=== PATIENT | female | born 1965 | race Asian ===

== ENCOUNTER 2016-12-27 05:28 | Day surgery (SDC) | payer OTHER ==
[2016-12-22 13:20] VITALS: BMI 24.3
[2016-12-27] MEDS ORDERED: MIDAZOLAM HCL 2 MG/2 ML SINGLE DOSE VIAL ONE (12:19)
[2016-12-27] MEDS ORDERED: PROPOFOL 20 ML ONE (12:19)
[2016-12-27] MEDS ORDERED: oxyCODONE HCL 5 MG TABLET PO PRN (13:55)
[2016-12-27] MEDS ORDERED: ONDANSETRON 4 MG/2 ML VIAL IVPUSH PRN (13:55)
[2016-12-27] MEDS ORDERED: ACETAMINOPHEN 1000 MG/100 ML VIAL (NON FORMULARY) IVPB PRN (13:56)
[2016-12-27] MEDS ORDERED: LACTATED RINGERS SOLUTION 1,000 ML IV SCH (14:00)
[2016-12-27] MEDS ORDERED: ACETAMINOPHEN 325 MG TABLET (FP) PO PRN (14:16)
[2016-12-27] MEDS ORDERED: IBUPROFEN 400 MG TABLET (FP) PO PRN (14:16)
--- NOTE | 2016-12-27 14:16 | HP ---
Admitting History and Physical - Admission History of Present Illness: 51 yo postmenopausal woman with postmenopausal bleeding and thickened endometrium Last menses 11/2015. Reports hx/o fibroid uterus, s/p ultrasound that showed thickened endometrium ( 11mm). Patient subsequently had episode of bleeding and desired surgical intervention. History Source: Patient Limitations to Obtaining History: No Limitations - Past Medical History Cardiovascular: No: HTN Pulmonary: Yes: Asthma Gastrointestinal: No: GERD ...LMP Comment: 11/2015 ...: No ...: 3 ...Para: 2 Heme/Onc: No: Anemia - Past Surgical History Past Surgical History: Yes: None - Smoking History Smoking history: Never smoked Aproximately how many cigarettes per day: 0 - Alcohol/Substance Use Hx Alcohol Use: No Home Medications - Allergies Allergies/Adverse Reactions: Allergies Allergy/AdvReac Type Severity Reaction Status Date / Time No Known Drug Allergies Allergy Verified 12/27/16 12:03 meloxicam AdvReac Verified 12/27/16 12:03 - Home Medications Home Medications: Ambulatory Orders Olmesartan Medoxomil [Benicar -] 20 mg PO DAILY 11/22/13 Albuterol Sulfate [Proventil HFA Inhaler -] 1 - 2 inh PO PRN PRN 05/18/16 Cholecalciferol (Vitamin D3) [Vitamin D -] 400 unit PO DAILY 05/18/16 Cyanocobalamin (Vitamin B-12) [Vitamin B12] 2,500 mcg PO DAILY 05/18/16 Family Disease History - Family Disease History Family History: Denies Review of Systems - Review of Systems Constitutional: reports: No Symptoms Cardiovascular: reports: No Symptoms Respiratory: reports: No Symptoms Gastrointestinal: reports: No Symptoms Genitourinary: reports: No Symptoms Musculoskeletal: reports: No Symptoms Integumentary: reports: No Symptoms Neurological: reports: No Symptoms Psychiatric: reports: No Symptoms Physical Examination Vital Signs: Vital Signs Temperature 98.4 F 12/27/16 12:00 Pulse Rate 89 12/27/16 12:00 Respiratory Rate 20 12/27/16 12:00 Blood Pressure 139/96 12/27/16 12:00 O2 Sat by Pulse Oximetry (%) 100 12/27/16 11:59 Constitutional: Yes: Well Nourished, No Distress, Calm Neck: Yes: Supple Cardiovascular: Yes: Regular Rate and Rhythm Respiratory: Yes: Regular, CTA Bilaterally Gastrointestinal: Yes: Normal Bowel Sounds, Soft Edema: No Psychiatric: Yes: Alert, Oriented Assessment/Plan 51 yo with thickened endometrium, postmenopausal bleeding. 1. Consents reviewed and signed. Reviewed risk including uterine perforation, bleeding, infection, damage to surrounding organs. She expressed understanding and written consent obtained 2. No preop antibiotics indicated 3. SCDs for DVT PPx 4. Will proceed ot OR
[2016-12-27 14:18] VITALS: TEMP 97.6
--- NOTE | 2016-12-27 14:19 | OP ---
Operative Note - Note: Operative Date: 12/27/16 Pre-Operative Diagnosis: postmenopausal bleeding, thickened endometrium Operation: hysterscopy, dilation and curettage Findings: normal appearing endometrium, uterus sounded to 8cm Surgeon: Julisa Sanchez Anesthesiologist/WATER QUALITY TECHNICIAN: Cyrus Malone Anesthesia: MAC Estimated Blood Loss (mls): 5 Fluid Volume Replaced (mls): 600 Operative Report Dictated: Yes
[2016-12-27 17:30] VITALS: BP 131/84; PULSE 69
--- NOTE | 2016-12-28 00:41 | OP ---
DATE OF OPERATION: 12/27/2016 ATTENDING PHYSICIAN: Julisa Sanchez MD PREOPERATIVE DIAGNOSIS: Postmenopausal bleeding, thickened endometrium. POSTOPERATIVE DIAGNOSIS: Postmenopausal bleeding, thickened endometrium. SURGERY: Hysteroscopy, dilation and curettage. FLUIDS GIVEN: 600 ml ESTIMATED BLOOD LOSS: 5 ml INDICATION: The patient is a 51-year-old 3, para 2, postmenopausal woman who had initially underwent ultrasound, which showed a thickened endometrium. She subsequently had an episode of bleeding. She was counseled regarding medical and surgical management and observation. She opted for surgical management. Risks, benefits, alternatives, and complications to the procedure were discussed including infection, bleeding, damage to surrounding organs such as bowel, bladder, ureters, she expressed understanding. DESCRIPTION OF PROCEDURE: She was brought to the operating room. She underwent anesthesia and when anesthesia was found to be adequate, the patient was prepped and draped in the normal sterile fashion and placed in the dorsal lithotomy position using Seamus stirrups. A weighted speculum was placed in the posterior portion of the patient's vagina. The anterior lip of the cervix was grasped using an Allis clamp. The cervix was gently dilated to accommodate a size 3-mm hysteroscope. The uterus was sounded to be approximately 8 mm. Hysteroscopy was performed. Bilateral ostia were visualized. No abnormal endometrium was noted. Gentle sharp curettings were performed. All instruments were removed from the patient's vagina. Patient tolerated the procedure well. Patient was awakened from anesthesia and brought to the recovery room in stable condition. Jesus [id number] MTDD
--- NOTE | 2016-12-29 10:27 | PATH ---
Surgical Pathology Report Patient Name: CHANTELL COULTER [facility]. Rec. #: [id number] /Age/Gender: 1965 (Age: 51) / F Account: [id number] Location: [facility] Taken: 12/27/2016 Received: 12/28/2016 Reported: 12/29/2016 Physicians: Julisa Sanchez Specimen(s) Received ENDOMETRIAL CURETTINGS Clinical History Postmenopausal bleeding Final Diagnosis ENDOMETRIUM, CURETTING: PROLIFERATIVE ENDOMETRIUM WITH AREAS OF STROMAL AND GLANDULAR BREAKDOWN. Comment: Recommend correlation with clinical findings and follow up as clinically indicated. Electronically Signed Juan Corrigan M.D. Gross Description Received in formalin labeled "endometrial curetting," is a 1.8 x 1.4 x 0.3 cm aggregate of stovall soft tissue fragments admixed with mucus. The formalin is filtered and the specimen is entirely submitted in one cassette. /12/28/2016 saudi12/28/2016
== END 2016-12-27 15:20 | disposition home or self-care (01) ==
LOC: JASU-SURG 05:28
PROVIDERS: ATTEND Obstetrics & Gynecology
PROC: 0UDB8ZX Extraction of Endometrium, Via Natural or Artificial Opening Endoscopic, Diagnostic (ICD-10-PCS; principal; 2016-12-27 13:00)
DX: N95.0 Postmenopausal bleeding (principal); R93.8 Abnormal findings on diagnostic imaging of other specified body structures
CPT/HCPCS: 88305-TC; 94760

== ENCOUNTER 2021-01-21 05:13 | Day surgery (SDC) | payer OTHER ==
[2021-01-19 16:53] VITALS: BMI 24.7
[2021-01-21 10:49] VITALS: BP 137/78; PULSE 64; TEMP 97
== END 2021-01-21 12:29 | disposition home or self-care (01) ==
LOC: JASU-ENDO 05:13
PROVIDERS: ATTEND Internal Medicine Gastroenterology
PROC: 0DB78ZX Excision of Stomach, Pylorus, Via Natural or Artificial Opening Endoscopic, Diagnostic (ICD-10-PCS; 2021-01-21)
PROC: 0DBP8ZX Excision of Rectum, Via Natural or Artificial Opening Endoscopic, Diagnostic (ICD-10-PCS; principal; 2021-01-21 09:35)
DX: Z12.11 Encounter for screening for malignant neoplasm of colon (principal); K62.1 Rectal polyp; Z86.010 Personal history of colon polyps; K57.30 Diverticulosis of large intestine without perforation or abscess without bleeding; K64.8 Other hemorrhoids; K31.7 Polyp of stomach and duodenum; K21.9 Gastro-esophageal reflux disease without esophagitis; K44.9 Diaphragmatic hernia without obstruction or gangrene; K29.40 Chronic atrophic gastritis without bleeding; R13.10 Dysphagia, unspecified
CPT/HCPCS: 88305-TC; 88342-TC